=== PATIENT | male | born 1980 ===

== ENCOUNTER 2017-05-04 07:42 | Day surgery (SDC) | payer SELFPAY ==
--- NOTE | 2017-05-04 09:48 | CP.SDSHP ---
Same Day Surgery H & P - History Proposed Procedure: US guided FNA of left thyroid nodule Pre-Op Diagnosis: Left thyroid nodule - Allergies Allergies: Allergies No Known Allergies Allergy (Verified 01/01/17 18:39) - Physical Exam Mental Status: Alert & Oriented x3 Neuro: WNL Heart: WNL Lungs: WNL - Impression Impression: Pt with a 3.5 cm complex left thyroid nodule. Plan US guided FNA. Pt. Evaluated Today:Candidate for Anesthesia & Procedure: No Short Stay Discharge - Short Stay Discharge Admitting Diagnosis/Reason for Visit: THYROID NODULE
--- NOTE | 2017-05-04 09:50 | PCM.SURG1 ---
Surgeon's Initial Post Op Note - Surgeon's Notes Surgeon: Timoteo Wang MD French Teacher: NONE Type of Anesthesia: Local Pre-Operative Diagnosis: Left thyroid nodule Operative Findings: US showed a complex 3.5 solid left thyroid nodule with calcifications. Post-Operative Diagnosis: Left thyroid nodule Operation Performed: US guided FNA Specimen/Specimens Removed: 25 g FNA x 4 passes Estimated Blood Loss: EBL {In ML}: 0 Blood Products Given: N/A Drains Used: No Drains Post-Op Condition: Good Date of Surgery/Procedure: 05/04/17 Time of Surgery/Procedure: 09:45
[2017-05-04 09:51] VITALS: BMI 31.9
--- NOTE | 2017-05-04 10:10 | US ---
PROCEDURE: Date of Procedure: 05/04/2017 PROCEDURE: 1. Ultrasound guided FNA of left thyroid nodule, CPT 25477 2. Ultrasound guidance for FNA, 77505 Medications: 4 cc 1% Lidocaine HISTORY: Enlarged left thyroid nodule. TECHNIQUE: Following informed consent and procedure time-out, a limited ultrasound patient's neck confirmed the presence of a 3.5 cm complex left thyroid nodule which is predominantly solid. After the patient's neck was prepped and draped in the usual sterile fashion, the skin was anesthetized with 1% lidocaine. Ultrasound-guided fine needle aspiration was then performed of the dominant left thyroid nodule. A total of 4 passes were made into the nodule with 25 gauge needle under ultrasound guidance. The FNA specimen was sent for routine pathology. Post biopsy ultrasound showed no hematoma. IMPRESSION: Ultrasound-guided FNA of the dominant left thyroid nodule.
[2017-05-04 10:13] VITALS: BP 127/80; PULSE 80; RESP 17; TEMP 97.9; O2SAT 100
== END 2017-05-04 10:16 | disposition home or self-care (01) ==
LOC: C.SPRAD 07:42
PROVIDERS: ATTEND Radiology Vascular & Interventional Radiology
DX: E04.1 Nontoxic single thyroid nodule (principal)

== ENCOUNTER 2017-12-08 14:01 | Emergency (ER) | payer SELFPAY ==
[2017-12-08 14:02] VITALS: BMI 36.9
[2017-12-08 14:22] VITALS: TEMP 99.9
--- NOTE | 2017-12-08 16:12 | C.PDOC ---
History Of Present Illness 37 y/o female presents to ED with complaints of pain and swelling to left testes for 5 days. Patient reports pain radiates to groin and subjective fever today which prompted visit to ED. Patient denies penile discharge, dysuria, hematuria or any other complaints at this time. denies abdominal pain. Time Seen by Provider: 12/08/17 15:46 Chief Complaint (Nursing): Male Genitourinary History Per: Patient History/Exam Limitations: no limitations Onset/Duration Of Symptoms: Days Current Symptoms Are (Timing): Still Present Past Medical History Reviewed: Historical Data, Nursing Documentation, Vital Signs Vital Signs: Last Vital Signs Temp 99.9 F H 12/08/17 14:19 Pulse 108 H 12/08/17 14:19 Resp 18 12/08/17 14:19 BP 133/84 12/08/17 14:19 Pulse Ox 97 12/08/17 18:40 - Medical History PMH: Fractures (nasal) Surgical History: No Surg Hx - [facility] Procedures INSPECTION OF LARYNX, ENDO (06/17/17) REPAIR SOFT PALATE, EXTERNAL APPROACH (06/17/17) RESECTION OF THYROID GLAND, OPEN APPROACH (06/17/17) Family History: States: No Known Family Hx - Social History Hx Alcohol Use: Yes Hx Substance Use: No - Immunization History Hx Tetanus Toxoid Vaccination: No Hx Influenza Vaccination: No Hx Pneumococcal Vaccination: No Review Of Systems Constitutional: Positive for: Fever. Negative for: Chills Respiratory: Negative for: Cough Gastrointestinal: Negative for: Nausea, Vomiting Genitourinary: Positive for: Other (Testis pain). Negative for: Dysuria, Hematuria Skin: Negative for: Rash Physical Exam - Physical Exam Appears: Non-toxic, No Acute Distress Skin: Warm, Dry, No Rash Head: Atraumatic, Normacephalic Oral Mucosa: Moist Neck: Normal ROM, Supple Cardiovascular: Rhythm Regular Respiratory: Normal Breath Sounds, No Rales, No Rhonchi, No Wheezing Gastrointestinal/Abdominal: Soft, No Tenderness, No Distention, No Guarding, No Rebound Male Genital: Testicular Tenderness (left), Testicular Swelling (left), No Inguinal Swelling, No Circumcised, Other (Markedly Large left testis) Extremity: Normal ROM, Capillary Refill (<2 seconds) Neurological/Psych: Oriented x3, Normal Speech, Normal Cognition ED Course And Treatment - Laboratory Results Result Diagrams: 12/08/17 17:10 12/08/17 17:10 O2 Sat by Pulse Oximetry: 97 (RA) Pulse Ox Interpretation: Normal Medical Decision Making Medical Decision Making: Plan: Testicular US, Labs, Pain medications discussed with Dr Bryan poe d/c with 2 weeks cirpo, f/u inhis office. Disposition Discussed With DrRamón: Gabino Abad Counseled Patient/Family Regarding: Studies Performed, Diagnosis, Need For Followup, Rx Given - Disposition Referrals: Gabino Abad MD [Staff Provider] - Disposition: HOME/ ROUTINE Disposition Time: 19:04 Condition: GOOD Additional Instructions: Por favor tome antibiticos hasta que se complete. Mantenga el escroto elevado cuando sea posible para ayudar a reducir la hinchazn. Ibuprofeno para el dolor Nuno un seguimiento con el Dr. Abad (urlogo) en 1-2 semanas. Regrese a la james de emergencias por cualquier empeoramiento de los sntomas. Please take antibiotics until complete. Keep scrotum elevated when possible to help with reduce swelling. Ibuprofen for pain. Follow up with Dr Abad ( urologist) in 1-2 weeks. Return to ER for any worsening symptoms. Prescriptions: Ciprofloxacin HCl [Cipro] 500 mg PO BID #28 tablet Instructions: Epididymitis (DC) Forms: Gen Discharge Inst Chadian, [facility] (Chadian) - Clinical Impression Clinical Impression: Epididymo-orchitis, acute - PA / MOVEMENT EDUCATION SPECIALIST / Resident Statement MD/DO has reviewed & agrees with the documentation as recorded. - Scribe Statement The provider has reviewed the documentation as recorded by the Scribe Arslan Lemons All medical record entries made by the Gillianibbryan were at my direction and personally dictated by me. I have reviewed the chart and agree that the record accurately reflects my personal performance of the history, physical exam, medical decision making, and the department course for this patient. I have also personally directed, reviewed, and agree with the discharge instructions and disposition.
[2017-12-08 17:14] LABS: BASO # 0.1 K/uL (0.0-0.2); BASO % 0.5 % (0.0-2.0); EOS % 0.1 % (0.0-4.0); HEMOGLOBIN 14.3 g/dL (12.0-18.0); LYMPH # 1.5 K/uL (1.0-4.3); LYMPH % 8.4 % (20.0-40.0); MEAN CELL VOLUME 88.4 fL (80.0-94.0); MEAN CORPUSCULAR HEMOGLOBIN 30.4 pg (27.0-31.0); MEAN CORPUSCULAR HGB CONC 34.4 g/dL (33.0-37.0); MEAN PLATELET VOLUME 7.9 fL (7.2-11.7); MONO # 1.2 K/uL (0.0-0.8); MONO % 6.5 % (0.0-10.0); NEUT # 15.1 K/uL (1.8-7.0); NEUT % 84.5 % (50.0-75.0); PLATELET COUNT 218 K/uL (130-400); RBC 4.71 Mil/uL (4.40-5.90); RED CELL DISTRIBUTION WIDTH 12.8 % (11.5-14.5)
[2017-12-08 17:15] LABS: WHITE BLOOD COUNT 17.9 K/uL (4.8-10.8)
[2017-12-08 17:21] LABS: URINE BILIRUBIN NEGATIVE (NEGATIVE); URINE BLOOD 1+ (NEGATIVE); URINE CLARITY Clear (Clear); URINE COLOR Straw (YELLOW); URINE GLUCOSE (UA) NORMAL (Normal); URINE LEUKOCYTE ESTERASE NEG Leu/uL (Negative); URINE PROTEIN NEGATIVE (NEGATIVE); URINE UROBILINOGEN NORMAL mg/dL (0.2-1.0)
[2017-12-08 17:27] LABS: ALB/GLOB RATIO 1.2 (1.0-2.1); ALBUMIN 4.9 g/dL (3.5-5.0); CALCIUM 9.2 mg/dl (8.6-10.4); GFR AFRICAN-AMERICAN > 60; GFR NON-AFRICAN AMERICAN > 60
[2017-12-08 17:38] LABS: ALT/SGPT 21 U/L (21-72); AST/SGOT 33 U/L (17-59); BLOOD UREA NITROGEN 12 mg/dL (9-20)
[2017-12-08 17:55] LABS: BANDS 1 % (0-2); LYMPHOCYTE 8 % (20-40); MONOCYTE 5 % (0-10); NEUTROPHIL 86 % (50-75); PLATELET ESTIMATE NORMAL (NORMAL); TOTAL CELLS COUNTED 100
[2017-12-08 17:56] LABS: ANISOCYTOSIS SLIGHT; OVALOCYTES SLIGHT; POIKILOCYTOSIS SLIGHT
--- NOTE | 2017-12-08 17:59 | US ---
HISTORY: left teste swelling TECHNIQUE: Realtime sonography through the scrotum with color and doppler flow. COMPARISON: None Available. FINDINGS: 4.5 x 4.0 mm lateral right scrotal calcification is appreciate which is nonspecific but could be a reflection of prior infection or inflammation. RIGHT TESTICLE: Measures 3.6 x 1.8 x 2.9 cm. Limited microlithiasis is identified within the right testicle without dominant mass or cyst. Color and spectral Doppler blood flow is normal with no evidence torsion identified. RIGHT EPIDIDYMIS: Epididymal head measures 1.0 x 0.6 x 0.6 cm. Grossly unremarkable appearance with normal flow. LEFT TESTICLE: Measures 4.1 x 2.7 x 3.1 cm. Microlithiasis is reiterated at the left testicle as compared to the right without dominant mass or cyst related. Increased color Doppler blood flow is appreciated throughout the left testicle in a pattern that may indicate orchitis. LEFT EPIDIDYMIS: Epididymal head measures 2.3 x 1.6 x 2.6 cm. Left epididymal head is enlarged and hyperemic as per color Doppler blood flow appearing increased without focal mass or cyst related. HYDROCELE: Small bilateral complex hydroceles are identified. VARICOCELE: No definite varicoceles appreciated bilaterally though early development is difficult to completely exclude the right hemiscrotum laterally. OTHER FINDINGS: None. IMPRESSION: 1. Findings most compatible with left sided epididymo-orchitis. 2. Bilateral testicular microlithiasis. Clinical follow-up advised. 3. Mild complex bilateral hydroceles with potential early varicocele development at the right hemiscrotum though this is not definitive.
[2017-12-08] MEDS ORDERED: cefTRIAXone (Rocephin) 250 mg Inj IM STA (18:37)
[2017-12-08 19:24] VITALS: BP 117/78; PULSE 79; RESP 16; O2SAT 98
== END 2017-12-08 19:23 | disposition home or self-care (01) ==
LOC: C.ER 14:01
DX: N45.3 Epididymo-orchitis (principal)
CPT/HCPCS: 76870; 80053; 81001; 85025; 87086; 87491; 87591; 96372; 96374; 99284; J0696; J1885

== ENCOUNTER 2017-12-14 07:30 | Day surgery (SDC) | payer SELFPAY ==
[2017-12-14 07:56] VITALS: BMI 39.6
[2017-12-14] MEDS ORDERED: Lactated Ringer's 500 ML IV ONE (10:00)
[2017-12-14 10:10] VITALS: O2SAT 100
[2017-12-14] MEDS ORDERED: Midazolam 2 MG/2 ML VIAL ONE (10:11)
[2017-12-14] MEDS ORDERED: Propofol 10 mg/ml Inj (20 ML) ONE ×2 (10:11→10:23)
[2017-12-14 12:18] VITALS: TEMP 98
[2017-12-14 13:22] VITALS: BP 131/86; PULSE 69; RESP 17
== END 2017-12-14 11:50 | disposition home or self-care (01) ==
LOC: C.ENDO 07:30
PROVIDERS: ATTEND Internal Medicine Gastroenterology
DX: K62.5 Hemorrhage of anus and rectum (principal); K64.8 Other hemorrhoids; E66.9 Obesity, unspecified; Z68.38 Body mass index [BMI] 38.0-38.9, adult; E89.0 Postprocedural hypothyroidism; Z85.850 Personal history of malignant neoplasm of thyroid; Z92.3 Personal history of irradiation; K57.30 Diverticulosis of large intestine without perforation or abscess without bleeding
CPT/HCPCS: 45378; J2250; J2704; J7120

== ENCOUNTER 2018-08-26 09:41 | Emergency (ER) | payer OTHER ==
[2018-08-26 09:41] VITALS: BMI 39.6
--- NOTE | 2018-08-26 10:22 | C.PDOC ---
History Of Present Illness Patient reports two day history of low back pain, states that he has been doing heavy lifting. Denies leg weakness/numbness/paresthesias, or bowel/bladder dysfunction. He has tried pain patches and tylenol with no relief. Time Seen by Provider: 08/26/18 09:55 Chief Complaint (Nursing): Back Pain Past Medical History Reviewed: Historical Data, Nursing Documentation, Vital Signs Vital Signs: Last Vital Signs Temp 98.4 F 08/26/18 09:46 Pulse 101 H 08/26/18 09:46 Resp 18 08/26/18 09:46 BP 133/82 08/26/18 09:46 Pulse Ox 97 08/26/18 09:46 - Medical History PMH: Fractures (nasal), Migraine (POST MENINGITIS) Denies: Chronic Kidney Disease - [facility] Procedures INSPECTION OF LARYNX, ENDO (06/17/17) REPAIR SOFT PALATE, EXTERNAL APPROACH (06/17/17) RESECTION OF THYROID GLAND, OPEN APPROACH (06/17/17) Family History: States: Unknown Family Hx - Social History Hx Alcohol Use: Yes Hx Substance Use: No - Immunization History Hx Tetanus Toxoid Vaccination: No Hx Influenza Vaccination: No Hx Pneumococcal Vaccination: No Review Of Systems Except As Marked, All Systems Reviewed And Found Negative. Constitutional: Negative for: Fever Cardiovascular: Negative for: Chest Pain Respiratory: Negative for: Cough, Shortness of Breath Gastrointestinal: Negative for: Nausea, Vomiting, Abdominal Pain, Diarrhea Musculoskeletal: Positive for: Back Pain. Negative for: Neck Pain, Shoulder Pain, Arm Pain, Leg Pain Skin: Negative for: Rash Neurological: Negative for: Weakness, Numbness Physical Exam - Physical Exam Appears: Well, Non-toxic, No Acute Distress Skin: Normal Color, Warm, Dry, No Rash Head: Normacephalic Oral Mucosa: Moist Neck: Normal, No Midline Cervical Tenderness, No Paracervical Tenderness Cardiovascular: Rhythm Regular Respiratory: Normal Breath Sounds Gastrointestinal/Abdominal: Normal Exam Back: Normal Inspection, No CVA Tenderness, No Vertebral Tenderness, Paraspinal Tenderness (L lumbar) Extremity: Normal ROM, No Deformity, No Swelling Neurological/Psych: Oriented x3, Normal Motor, Normal Sensation Gait: Other (slow secondary to back pain, however able to bear weight bilaterally) ED Course And Treatment O2 Sat by Pulse Oximetry: 97 Medical Decision Making Medical Decision Makinmg toradol IM and 5mg valium PO given. Rx written for ibuprofen and valium. Ad vised followup with PMD. Return to the ED for any new or worsening symptoms. Patient advised not to operate heavy machinery or work while taking valium as it can make him drowsy. Disposition - Disposition Disposition: HOME/ ROUTINE Disposition Time: 10:25 Condition: STABLE Additional Instructions: SADIA STALLINGS, thank you for letting us take care of you today. Your provider was Yaneth Dee MD and you were treated for BACK PAIN. The em ergency medical care you received today was directed at your acute symptoms. If you were prescribed any medication, please fill it and take as directed. It may take several days for your symptoms to resolve. Return to the Emergency Department if your symptoms worsen, do not improve, or if you have any other problems. Please contact your doctor or call one of the physicians/clinics you have been r eferred to that are listed on the Patient Visit Information form that is included in your discharge packet. Bring any paperwork you were given at discharge with you along with any medications you are taking to your follow up visit. Our treatment cannot replace ongoing medical care by a primary care provider outside of the emergency department. Thank you for allowing the [facility] team to be part of your care today. If you had an X-Ray or CT scan: A Radiologist will review the ED reading if any change in treatment is needed we will contact you. If you had a blood, urine, or wound culture: It will take several days for the results, if any change in treatment is needed we will contact you. If you had an STI test: It will take 48 hours for the results. Please call after 1 week if you have not heard back. Prescriptions: diaZEpam [Valium] 5 mg PO TID PRN #9 tab PRN Reason: Muscle Spasm RX: Ibuprofen [Motrin Tab] 600 mg PO TID PRN #20 tab PRN Reason: Pain, Moderate (4-7) Instructions: Low Back Pain (DC) Forms: Gen Discharge Inst Ecuadorean, [email or web address] (Ecuadorean), Work Excuse Print Language: NORWEGIAN - Clinical Impression Clinical Impression: Low back pain
[2018-08-26 12:55] VITALS: BP 133/82; PULSE 101; RESP 18; TEMP 98.4; O2SAT 97
== END 2018-08-26 10:41 | disposition home or self-care (01) ==
LOC: C.ER 09:41
DX: M54.5 Low back pain (principal)
CPT/HCPCS: 96372; 99283; J1885

== ENCOUNTER 2018-11-19 08:34 | Outpatient (CLI) | payer OTHER | END 2018-11-19 08:35 | disposition home or self-care (01) | LOC: C.LAB 08:34 | DX: E03.9 Hypothyroidism, unspecified (principal); C73 Malignant neoplasm of thyroid gland; E11.69 Type 2 diabetes mellitus with other specified complication; E78.2 Mixed hyperlipidemia ==

== ENCOUNTER 2018-12-05 15:39 | Emergency (ER) | payer OTHER ==
[2018-12-05 15:40] VITALS: BMI 39.6
[2018-12-05] MEDS ORDERED: Fluorescein 1 mg Ophthalmic Strip ONE (16:16)
[2018-12-05] MEDS ORDERED: Tetracaine 0.5% Ophth (OR ONLY) ONE (16:16)
--- NOTE | 2018-12-05 16:32 | C.PDOC ---
History Of Present Illness 38 year old male presents to the ED complaining of foreign body sensation in the left eye. Reports he was putting apart a glass table when it slipped from his hands and shattered. Patient thinks a piece of glass landed in his eye. Denies any other injuries, loss of vision, tearing, headache, dizziness, nausea, or vomiting. Chief Complaint (Nursing): Eye Problem History Per: Patient History/Exam Limitations: no limitations Onset/Duration Of Symptoms: Days Current Symptoms Are (Timing): Still Present Associated Symptoms: FB Sensation Past Medical History Reviewed: Historical Data, Nursing Documentation, Vital Signs Vital Signs: Last Vital Signs Temp 99 F 12/05/18 15:41 Pulse 86 12/05/18 15:41 Resp 20 12/05/18 15:41 BP 139/100 H 12/05/18 15:41 Pulse Ox 99 12/05/18 15:41 - Medical History PMH: Fractures (nasal), Migraine (POST MENINGITIS) Denies: Chronic Kidney Disease Other Surgeries: Hx of surgeries - [facility] Procedures INSPECTION OF LARYNX, ENDO (06/17/17) REPAIR SOFT PALATE, EXTERNAL APPROACH (06/17/17) RESECTION OF THYROID GLAND, OPEN APPROACH (06/17/17) Family History: States: No Known Family Hx - Social History Hx Alcohol Use: Yes Hx Substance Use: No - Immunization History Hx Tetanus Toxoid Vaccination: No Hx Influenza Vaccination: No Hx Pneumococcal Vaccination: No Review Of Systems Constitutional: Negative for: Fever, Chills Eyes: Positive for: Other (FB sensation in left eye). Negative for: Vision Change, Eyelid Inflammation Gastrointestinal: Negative for: Nausea, Vomiting Musculoskeletal: Negative for: Neck Pain Skin: Negative for: Rash, Bruising Neurological: Negative for: Weakness, Headache, Dizziness Physical Exam - Physical Exam Appears: Non-toxic, No Acute Distress Skin: Warm, Dry, No Rash Head: Normacephalic Eye(s): bilateral: PERRL, EOMI, right: Normal Inspection, left: Other (Injected, no uptake on Fluorescein staining. ) Ear(s): Bilateral: Normal Nose: Normal Oral Mucosa: Moist Neck: Supple Chest: Symmetrical Cardiovascular: Rhythm Regular Respiratory: Normal Breath Sounds, No Accessory Muscle Use Neurological/Psych: Oriented x3, Normal Speech Gait: Steady ED Course And Treatment O2 Sat by Pulse Oximetry: 99 (RA) Pulse Ox Interpretation: Normal Medical Decision Making Medical Decision Making: Patient instructed to start artificial teart to keep eye lubricated. Instructed to follow up with Wood Shop Teacher. Patient verbalizes understanding and is in agreement with plan. Patient is stable for discharge. Disposition Counseled Patient/Family Regarding: Diagnosis, Need For Followup, Rx Given - Disposition Referrals: Zach Colon [Staff Provider] - Disposition: HOME/ ROUTINE Disposition Time: 16:29 Condition: STABLE Additional Instructions: Start Artificial tears to keep the eye lubricated Follow up with Ophthalmology tomorrow for further evaluation Return to the ED if symptoms worsen Prescriptions: Propylene Glycol/Peg 400 [Systane Gel Eye Drops] 1 drop OS BID #1 bottle Instructions: Eye Contusion (DC) Forms: [employer] (Upper Sorbian) - Clinical Impression Clinical Impression: Pain in eye, Trauma to eye, left - PA / HEATING AND VENTILATING TENDER / Resident Statement MD/DO has reviewed & agrees with the documentation as recorded. - Scribe Statement The provider has reviewed the documentation as recorded by the Scribe Josie Irizarry All medical record entries made by the Gillianibbryan were at my direction and personally dictated by me. I have reviewed the chart and agree that the record accurately reflects my personal performance of the history, physical exam, medical decision making, and the department course for this patient. I have also personally directed, reviewed, and agree with the discharge instructions and disposition.
[2018-12-05 16:47] VITALS: BP 138/95; PULSE 81; RESP 18; TEMP 98.7
[2018-12-05 16:49] VITALS: O2SAT 99
== END 2018-12-05 16:47 | disposition home or self-care (01) ==
LOC: C.ER 15:39
DX: S05.92XA Unspecified injury of left eye and orbit, initial encounter (principal); X58.XXXA Exposure to other specified factors, initial encounter; H57.12 Ocular pain, left eye

== ENCOUNTER 2018-12-16 09:41 | Emergency (ER) | payer OTHER ==
[2018-12-16 09:42] VITALS: BMI 39.6
[2018-12-16 10:45] LABS: BASO # 0.1 K/uL (0.0-0.2); EOS # 0.3 K/uL (0.0-0.7); EOS % 3.8 % (0.0-4.0); HEMOGLOBIN 14.3 g/dL (12.0-18.0); LYMPH # 2.1 K/uL (1.0-4.3); LYMPH % 25.1 % (20.0-40.0); MEAN CELL VOLUME 90.1 fL (80.0-94.0); MEAN CORPUSCULAR HEMOGLOBIN 31.2 pg (27.0-31.0); MEAN CORPUSCULAR HGB CONC 34.6 g/dL (33.0-37.0); MEAN PLATELET VOLUME 8.5 fL (7.2-11.7); MONO # 0.7 K/uL (0.0-0.8); MONO % 8.8 % (0.0-10.0); NEUT # 5.1 K/uL (1.8-7.0); NEUT % 61.3 % (50.0-75.0); RBC 4.6 Mil/uL (4.40-5.90); RED CELL DISTRIBUTION WIDTH 13.2 % (11.5-14.5); WHITE BLOOD COUNT 8.4 K/uL (4.8-10.8)
--- NOTE | 2018-12-16 10:54 | CT ---
Date of service: 12/16/2018 PROCEDURE: CT HEAD WITHOUT CONTRAST. HISTORY: r/o ICH COMPARISON: The by lesion in the stomach or TECHNIQUE: Axial computed tomography images were obtained through the head/brain without intravenous contrast. Radiation dose: Total exam DLP = 1162.97 mGy-cm. This CT exam was performed using one or more of the following dose reduction techniques: Automated exposure control, adjustment of the mA and/or kV according to patient size, and/or use of iterative reconstruction technique. FINDINGS: HEMORRHAGE: No intracranial hemorrhage. BRAIN: Diop-white matter differentiation is preserved. There is no mass, mass effect or abnormal extra-axial fluid collection. There is no territorial infarction. The midline sagittal structures are normal. VENTRICLES: The ventricles are normal in size, shape and configuration. CALVARIUM: There is no calvarial fracture or extracranial soft tissue swelling. PARANASAL SINUSES: Predominantly clear. MASTOID AIR CELLS: Predominantly clear. OTHER FINDINGS: None. IMPRESSION: No acute intracranial abnormality. Mild chronic maxillary, sphenoid and ethmoid sinusitis.
--- NOTE | 2018-12-16 11:08 | RAD ---
Date of service: 12/16/2018 PROCEDURE: CHEST RADIOGRAPH, 1 VIEW HISTORY: chest pain COMPARISON: None available. FINDINGS: LUNGS: The lungs are well inflated and clear. PLEURA: No pneumothorax or pleural effusion. CARDIOVASCULAR: The heart is normal in size. No aortic atherosclerotic calcifications present. OSSEOUS STRUCTURES: Within normal limits for the patient's age. VISUALIZED UPPER ABDOMEN: Normal. OTHER FINDINGS: None. IMPRESSION: No active pulmonary disease.
[2018-12-16 11:11] LABS: ALB/GLOB RATIO 1.6 (1.0-2.1); ALBUMIN 4.5 g/dL (3.5-5.0); ALT/SGPT 33 U/L (21-72); AST/SGOT 27 U/L (17-59); BLOOD UREA NITROGEN 18 mg/dL (9-20); CALCIUM 9.4 mg/dl (8.6-10.4); GFR NON-AFRICAN AMERICAN > 60
[2018-12-16 11:30] VITALS: BP 114/78; PULSE 68; RESP 18; TEMP 98.3; O2SAT 100
[2018-12-16 11:36] LABS: T3 1.87 nmol/L (1.49-2.60)
--- NOTE | 2018-12-16 16:15 | C.PDOC ---
History Of Present Illness 38 year old male presents to the ED complaining of sharp left sided chest pain and mild headache for 3 days. Reports he went to the pharmacy and got his blood pressure checked and it was elevated. Blood pressure is WNL in the ED. Patient is currently asymptomatic in the ED. Denies any shortness of breath, fever, chills, dizziness, syncope, nausea, vomiting, or any other symptoms. Time Seen by Provider: 12/16/18 10:02 Chief Complaint (Nursing): Chest Pain History Per: Patient History/Exam Limitations: no limitations Onset/Duration Of Symptoms: Days (3) Current Symptoms Are (Timing): Still Present Quality: "Pain" Associated Symptoms: denies: Nausea, Dyspnea, Diaphoresis, Syncope Past Medical History Reviewed: Historical Data, Nursing Documentation, Vital Signs Vital Signs: Last Vital Signs Temp 98.3 F 12/16/18 11:29 Pulse 68 12/16/18 11:29 Resp 18 12/16/18 11:29 BP 114/78 12/16/18 11:29 Pulse Ox 100 12/16/18 11:29 - Medical History PMH: Fractures (nasal), Hyperthyroidism, Migraine (POST MENINGITIS) Denies: Chronic Kidney Disease Other Surgeries: hx of surgeries - [facility] Procedures INSPECTION OF LARYNX, ENDO (06/17/17) REPAIR SOFT PALATE, EXTERNAL APPROACH (06/17/17) RESECTION OF THYROID GLAND, OPEN APPROACH (06/17/17) Family History: States: No Known Family Hx - Social History Hx Alcohol Use: Yes Hx Substance Use: No - Immunization History Hx Tetanus Toxoid Vaccination: No Hx Influenza Vaccination: No Hx Pneumococcal Vaccination: No Review Of Systems Except As Marked, All Systems Reviewed And Found Negative. Constitutional: Negative for: Fever, Chills, Sweats Cardiovascular: Positive for: Chest Pain. Negative for: Palpitations Respiratory: Negative for: Cough, Shortness of Breath Gastrointestinal: Negative for: Nausea, Vomiting, Abdominal Pain, Diarrhea Neurological: Positive for: Headache. Negative for: Dizziness, Other (syncope ) Physical Exam - Physical Exam Appears: Non-toxic, No Acute Distress Skin: Warm, Dry, No Rash Head: Normacephalic Eye(s): bilateral: Normal Inspection Nose: Normal Oral Mucosa: Moist Neck: Supple Chest: Symmetrical Cardiovascular: Rhythm Regular Respiratory: Normal Breath Sounds, No Rales, No Rhonchi, No Wheezing Gastrointestinal/Abdominal: Soft, No Tenderness, No Distention, No Guarding, No Rebound Extremity: No Pedal Edema Pulses: Left Dorsalis Pedis: Normal, Right Dorsalis Pedis: Normal Neurological/Psych: Oriented x3, Normal Speech Gait: Steady ED Course And Treatment - Laboratory Results Result Diagrams: 12/16/18 10:31 12/16/18 10:31 Lab Results: Troponin I < 0.0120 ng/mL (0.00-0.120) 12/16/18 10:31 Total Bilirubin 0.4 mg/dL (0.2-1.3) 12/16/18 10:31 AST 27 U/L (17-59) 12/16/18 10:31 ALT 33 U/L (21-72) 12/16/18 10:31 Alkaline Phosphatase 89 U/L (38-126) 12/16/18 10:31 Total Protein 7.3 g/dL (6.3-8.3) 12/16/18 10:31 Albumin 4.5 g/dL (3.5-5.0) 12/16/18 10:31 Globulin 2.8 gm/dL (2.2-3.9) 12/16/18 10:31 Albumin/Globulin Ratio 1.6 (1.0-2.1) 12/16/18 10:31 ECG: Interpreted By Me, Viewed By Me ECG Rhythm: Sinus Rhythm ECG Interpretation: No Acute Changes Rate From EC O2 Sat by Pulse Oximetry: 100 (RA) Pulse Ox Interpretation: Normal Medical Decision Making Medical Decision Making: Plan - EKG - CT head - Bloodwork - CXR CT results: IMPRESSION: No acute intracranial abnormality. Mild chronic maxillary, sphenoid and ethmoid sinusitis. CXR results: IMPRESSION: No active pulmonary disease. On re-examination, patient is resting comfortably in no acute distress. Patient instructed to F/U with clinic. Disposition - Disposition Referrals: [facility] [Outside] [facility] [Outside] Disposition: HOME/ ROUTINE Disposition Time: 11:45 Condition: GOOD Additional Instructions: SADIA STALLINGS, thank you for letting us take care of you today. The emergency medical care you received today was directed at your acute symptoms. If you were prescribed any medication, please fill it and take as directed. It may take several days for your symptoms to resolve. Return to the Emergency Department if your symptoms worsen, do not improve, or if you have any other problems. Please contact your doctor or call one of the physicians/clinics you have been referred to that are listed on the Patient Visit Information form that is included in your discharge packet. Bring any paperwork you were given at discharge with you along with any medications you are taking to your follow up visit. Our treatment cannot replace ongoing medical care by a primary care provider outside of the emergency department. Thank you for allowing the [facility] team to be part of your care today. Follow up with the clinic in 3-5 days for re-evaluation and further management. SADIA STALLINGS, devaughn por dejar que nos encarguemos de bela. La atencin mdica de emergencia que recibi hoy se dirigi a ebony sntomas agudos. Si le recetaron algn medicamento, llnelo y tmelo segn las indicaciones. Los sntomas pueden tardar varios suárez en resolverse. Regrese al Departamento de Emergencias si ebony sntomas empeoran, no mejoran o si tiene otros problemas. Comunquese con watt mdico o llame a vianey de los mdicos / clnicas a los que edmond sido referido que figuran en el formulario de Informacin de visita al paciente que se incluye en watt paquete de giancarlo. Lleve todos los documentos que recibi al momento del giancarlo junto con los medicamentos que est tomando para watt visita de seguimiento. Nuestro tratamiento no puede reemplazar la atencin mdica continua por parte de un proveedor de atencin primaria fuera del departamento de emergencias. Devaughn por permitir que el equipo de [facility] sea parte de watt atencin hoy. Nuno un seguimiento con la clnica en 3 a 5 suárez para reevaluar y administrar ms. Prescriptions: Meclizine [Meclizine*] 25 mg PO Q6 PRN #20 tab PRN Reason: Dizziness Instructions: Dizziness, Nonvertigo, (DC) Forms: [employer] (Indonesian), [employer] (Israeli), Work Excuse Print Language: CAPE VERDEAN - Clinical Impression Clinical Impression: Dizziness
--- NOTE | 2018-12-18 10:41 | CARD ---
APPROVED REPORT Date of service: 12/16/2018 EKG Measurement Heart [id number] <Conclusion> Normal sinus rhythm Normal ECG
== END 2018-12-16 12:05 | disposition home or self-care (01) ==
LOC: C.ER 09:41
DX: R42 Dizziness and giddiness (principal)